=== PATIENT | female | born 1980 | race Hispanic/Latino ===

== ENCOUNTER 2024-02-18 20:48 | Emergency (ER) | payer OTHER ==
[~2024-02-18] VITALS: Ht 152.4 cm; Wt 72.6 kg
[~2024-02-18 20:48] MED LIST: FAMOTIDINE20 MG PO; LOSARTAN POTAS100 MG PO; MAALOX MAXIMUM355 ML PO; METFORMIN HCL500 M2 PO; ONDANSETRON ODT4 MG PO; REPATHA SY140 MG/1 M; ROSUVASTATIN CA40 MG
[2024-02-18 20:50] VITALS: TEMP 98.4
[2024-02-18] MEDS: FAMOTIDINE 20 MG/2 ML VIAL IV STA (21:36)
[2024-02-18] MEDS: ONDANSETRON HCL INJ 2MG/ML 2ML 2 MG/ML VIAL IV STA (21:37)
[2024-02-18] MEDS: SODIUM CHLORIDE 0.9% 1000ML 1,000 ML IV STA (21:37)
[2024-02-18] MEDS ORDERED: IOPAMIDOL 370 MG/ML 100 ML INFUS..BTL INJ ONE ×2 (22:25→22:26)
[2024-02-18] MEDS ORDERED: SODIUM CHLORIDE 0.9% 200 ML ONE (22:25)
[2024-02-18] MEDS: KETOROLAC TROMETHAMINE 30 MG/ML VIAL IV STA (22:39)
[2024-02-19] MEDS ORDERED: ONDANSETRON ODT4 MG PO (01:52)
[2024-02-19] MEDS ORDERED: PANTOPRAZOLE SO40 MG PO (01:53)
[2024-02-19] MEDS ORDERED: MEDROL4 MG PO (01:54)
[2024-02-19] MEDS ORDERED: MELOXICAM7.5 MG PO (01:56)
[2024-02-19 02:00] VITALS: PULSE 69; RESP 18; O2SAT 100
== END 2024-02-19 02:00 | disposition home or self-care (01) ==
LOC: FSED 21:05
DX: R20.0 Anesthesia of skin (principal); R07.89 Other chest pain; K52.9 Noninfective gastroenteritis and colitis, unspecified; R11.2 Nausea with vomiting, unspecified; E86.0 Dehydration; K29.70 Gastritis, unspecified, without bleeding; M54.12 Radiculopathy, cervical region; E11.9 Type 2 diabetes mellitus without complications; I10 Essential (primary) hypertension; E78.5 Hyperlipidemia, unspecified; Z85.038 Personal history of other malignant neoplasm of large intestine
CPT/HCPCS: 70496; 70498; 71260; 80048; 80076; 81003; 82553; 84484; 85025; 93005; 99283; J1885; J2405; J7030; J7050; Q9967

== ENCOUNTER 2024-06-28 23:23 | Emergency (ER) | payer OTHER ==
[~2024-06-28] VITALS: Ht 152.4 cm; Wt 75.3 kg
[~2024-06-28 23:23] MED LIST changes: +MEDROL4 MG PO; +MELOXICAM7.5 MG PO; +PANTOPRAZOLE SO40 MG PO
[2024-06-28 23:40] VITALS: PULSE 78; RESP 18; TEMP 97.9
[2024-06-29] MEDS: KETOROLAC TROMETHAMINE 30 MG/ML VIAL IV STA (00:53)
[2024-06-29] MEDS: SODIUM CHLORIDE 0.9% 1000ML 1,000 ML IV ONE (00:54)
[2024-06-29] MEDS ORDERED: ONDANSETRON ODT4 MG PO (01:20)
[2024-06-29] MEDS: ONDANSETRON HCL INJ 2MG/ML 2ML 2 MG/ML VIAL IV STA (01:32)
[2024-06-29 02:35] VITALS: BP 112/54; PULSE 76; RESP 18; TEMP 98; O2SAT 99
== END 2024-06-29 02:35 | disposition home or self-care (01) ==
LOC: FSED 23:28
DX: K52.9 Noninfective gastroenteritis and colitis, unspecified (principal); R11.2 Nausea with vomiting, unspecified; E86.0 Dehydration; E86.1 Hypovolemia; E11.9 Type 2 diabetes mellitus without complications
CPT/HCPCS: 80048; 80076; 81003; 81025; 85025; 96374; 99283; J1885; J2405; J7030